=== PATIENT | male | born 1930 | race Caucasian/White ===

== ENCOUNTER 2016-08-11 07:53 | Day surgery (SDC) | payer MEDICARE, OTHER ==
[~2016-08-11 07:53] MED LIST: KETOROLAC TROMETHAMINE 0.45% 4 DROP/0.4 ML DROPERETTE OD PRN
[2016-08-11] MEDS ORDERED: LIDOCAINE 1% INJ-PF (10 MG/ML) 30 ML SDV ONE (08:09)
[2016-08-11] MEDS ORDERED: CHONDR SU A NA/HYALUR INTRAOC KIT (SURGICARE) ONE (08:09)
[2016-08-11] MEDS ORDERED: EPINEPHRINE INJ/PF 1 MG/1 ML AMPULE ONE (08:09)
[2016-08-11] MEDS: TETRACAINE HCL 0.5% OPH SOLN 0.6 ML DROPERETTE OD PRN ×3 (08:38→09:06)
[2016-08-11] MEDS: TROPICAMIDE 1% OPH SOLN 3 ML OD PRN ×3 (08:39→08:56)
[2016-08-11] MEDS: CYCLOPENTOLATE 0.2%/PHENYLEPHRINE 1% OPH SOLN 2 ML OD PRN ×3 (08:39→08:57)
[2016-08-11] MEDS: BESIFLOXACIN HCL 0.6% OPH SUSP 5 ML BOTTLE OD PRN ×4 (08:40→09:29)
[2016-08-11] MEDS ORDERED: MIDAZOLAM 2 MG/2 ML INJ ONE (08:45)
[2016-08-11] MEDS ORDERED: PHENYLEPHRINE/KETOROLAC 1%-0.3% 4 ML VIAL ONE (08:50)
[2016-08-11] MEDS: TOBRAMYCIN SULFATE/DEXAMETH OPH OINTMENT 3.5 GM ONE ×2 (09:29)
== END 2016-08-11 10:02 | disposition home or self-care (01) ==
LOC: SC 07:53
PROVIDERS: ATTEND Ophthalmology
PROC: 08RJ3JZ Replacement of Right Lens with Synthetic Substitute, Percutaneous Approach (ICD-10-PCS; principal; 2016-08-11 09:15)
DX: H25.11 Age-related nuclear cataract, right eye (principal); K21.9 Gastro-esophageal reflux disease without esophagitis; I10 Essential (primary) hypertension; E78.00 Pure hypercholesterolemia, unspecified; E05.90 Thyrotoxicosis, unspecified without thyrotoxic crisis or storm; H91.90 Unspecified hearing loss, unspecified ear; I49.9 Cardiac arrhythmia, unspecified; Z79.82 Long term (current) use of aspirin; Z79.899 Other long term (current) drug therapy; Z79.01 Long term (current) use of anticoagulants; Z87.891 Personal history of nicotine dependence
CPT/HCPCS: 66984; J2250; J3490 ×3; A9270; C9447; 142; J0171

== ENCOUNTER 2016-08-25 07:55 | Day surgery (SDC) | payer MEDICARE, OTHER ==
[~2016-08-25 07:55] MED LIST changes: -KETOROLAC TROMETHAMINE 0.45% 4 DROP/0.4 ML DROPERETTE OD PRN; +KETOROLAC TROMETHAMINE 0.45% 4 DROP/0.4 ML DROPERETTE OS PRN
[2016-08-25] MEDS ORDERED: CHONDR SU A NA/HYALUR INTRAOC KIT (SURGICARE) ONE (08:01)
[2016-08-25] MEDS ORDERED: LIDOCAINE 1% INJ-PF (10 MG/ML) 30 ML SDV ONE (08:01)
[2016-08-25] MEDS ORDERED: PHENYLEPHRINE/KETOROLAC 1%-0.3% 4 ML VIAL ONE (08:01)
[2016-08-25] MEDS ORDERED: TOBRAMYCIN SULFATE/DEXAMETH OPH OINTMENT 3.5 GM ONE (08:01)
[2016-08-25] MEDS: BESIFLOXACIN HCL 0.6% OPH SUSP 5 ML BOTTLE OS PRN ×3 (08:26→09:35)
[2016-08-25] MEDS: TROPICAMIDE 1% OPH SOLN 3 ML OS PRN ×3 (08:26→08:48)
[2016-08-25] MEDS: TETRACAINE HCL 0.5% OPH SOLN 0.6 ML DROPERETTE OS PRN ×3 (08:26→09:15)
[2016-08-25] MEDS: CYCLOPENTOLATE 0.2%/PHENYLEPHRINE 1% OPH SOLN 2 ML OS PRN ×3 (08:26→08:48)
[2016-08-25] MEDS ORDERED: FENTANYL CITRATE INJ/PF 100 MCG/2 ML AMPUL ONE (09:08)
[2016-08-25] MEDS ORDERED: MIDAZOLAM 2 MG/2 ML INJ ONE (09:08)
== END 2016-08-25 10:12 | disposition home or self-care (01) ==
LOC: SC 07:55
PROVIDERS: ATTEND Ophthalmology
PROC: 08RK3JZ Replacement of Left Lens with Synthetic Substitute, Percutaneous Approach (ICD-10-PCS; principal; 2016-08-25 09:30)
DX: H25.12 Age-related nuclear cataract, left eye (principal); I10 Essential (primary) hypertension; E78.00 Pure hypercholesterolemia, unspecified; K21.9 Gastro-esophageal reflux disease without esophagitis; Z96.1 Presence of intraocular lens; E05.90 Thyrotoxicosis, unspecified without thyrotoxic crisis or storm; H91.90 Unspecified hearing loss, unspecified ear; Z79.82 Long term (current) use of aspirin; Z79.899 Other long term (current) drug therapy
CPT/HCPCS: 66984; V2630; J2250; J3490 ×3; A9270; J3010; C9447; 142

== ENCOUNTER → 2016-12-17 | Outpatient (CLI) | payer MEDICARE, OTHER ==
--- NOTE | 2016-12-17 14:38 | RADIOLOGY REPORT (SQ) ---
EXAM DESCRIPTION: CTA ABDOMEN/PELVIS W WO COMPLETED DATE/TIME: 12/17/2016 11:43 am REASON FOR STUDY: AORTIC ANEURYSM OF UNSPECIFIED SITE, W/O RUPTURE I71.9 AORTIC ANEURYSM OF UNSPECI FIED SITE, WITHOUT RUPTURE COMPARISON: None. TECHNIQUE: CT scan of the abdominal aorta extending to the iliac bifurcation performed with intraven ous contrast using helical scanning technique with dynamic intravenous contrast injection. Images rev iewed with lung, soft tissue, and bone windows. Reconstructed coronal and sagittal MPR images reviewe d. All images stored on PACS. Advanced 3D imaging as volume rendering, MIPS, SSD performed? Yes All CT scanners at this facility use dose modulation, iterative reconstruction, and/or weight based d osing when appropriate to reduce radiation dose to as low as reasonably achievable (ALARA). [facility]: Dose Right [facility]: CareDose [facility]: Dose Right [facility]: Teradose 4D [facility]: [employer] CONTRAST TYPE AND DOSE: 60mL Isovue 370 RENAL FUNCTION: Creatinine 1.4 LIMITATIONS: None. FINDINGS: POST-CONTRAST IMAGING: AORTA AND VESSELS: There is diffuse ectasia of the abdominal aorta with vascular calcifications and a large component of intraluminal clot. An infrarenal abdominal aortic aneurysm is identified measuri ng 3.3 x 3.5 cm in diameters. There are crescentic calcifications within the lumen of the abdominal aortia which has the appearance of a thrombosed aortic dissection. No evidence for a leaking aneurys m is seen. LUNG BASES: No significant findings. No nodules or infiltrates. LIVER: Normal size. No masses or dilated ducts. SPLEEN: Normal size. No focal lesions. PANCREAS: No masses. No significant calcifications. No adjacent inflammation or peripancreatic fluid collections. Pancreatic duct not dilated. GALLBLADDER: Status post cholecystectomy. ADRENAL GLANDS: No significant masses or asymmetry. RIGHT KIDNEY AND URETER: No mass, calculi or urinary tract obstruction. LEFT KIDNEY AND URETER: No mass, calculi or urinary tract obstruction. RETROPERITONEUM: No retroperitoneal adenopathy, hemorrhage or masses. BOWEL AND PERITONEAL CAVITY: No masses or inflammatory changes. No free fluid or peritoneal masses. APPENDIX: Normal. ABDOMINAL WALL: No masses. No hernias. BONY STRUCTURES: No significant or acute findings. 3-D IMAGING: Confirms the above findings. OTHER: No other significant finding. IMPRESSION: There is diffuse ectasia of the abdominal aorta with vascular calcifications and a large component of intraluminal clot. Infrarenal abdominal aortic aneurysm is identified measuring 3.3 x 3.5 cm in diameters. There are crescentic calcifications within the lumen of the abdominal aorta whi ch has the appearance of a thrombosed aortic dissection. No evidence for a leaking aneurysm is seen. Other findings as noted above TECHNICAL DOCUMENTATION: JOB ID: [id number] Quality ID # [id number]: Final reports with documentation of one or more dose reduction techniques (e.g., Au tomated exposure control, adjustment of the mA and/or kV according to patient size, use of iterative reconstruction technique) 2010 [employer]- All Rights Reserved
== END ==
LOC: RAD 10:20
PROVIDERS: ATTEND Internal Medicine
DX: I71.9 Aortic aneurysm of unspecified site, without rupture (principal)
CPT/HCPCS: 74174; 82565

== ENCOUNTER → 2017-03-21 | Outpatient (CLI) | payer MEDICARE, OTHER ==
--- NOTE | 2017-03-21 10:51 | RADIOLOGY REPORT (SQ) ---
EXAM DESCRIPTION: CT ABDOMEN NO ORAL OR IV COMPLETED DATE/TIME: 03/21/2017 7:20 am REASON FOR STUDY: AAA OF UNSPEC SITE, W/O RUPTURE (I71.9) I71.9 AORTIC ANEURYSM OF UNSPECIFIED SITE , WITHOUT RUPTURE COMPARISON: None. TECHNIQUE: CT scan of the abdomen performed without intravenous contrast and with oral contrast. Im ages reviewed with lung, soft tissue, and bone windows. Reconstructed coronal and sagittal MPR image s reviewed. All images stored on PACS. All CT scanners at this facility use dose modulation, iterative reconstruction, and/or weight based d osing when appropriate to reduce radiation dose to as low as reasonably achievable (ALARA). [facility]: Dose Right [facility]: CareDose [facility]: Dose Right [facility]: Teradose 4D [facility]: Smart [employer] RADIATION DOSE: Up-to-date CT equipment and radiation dose reduction techniques were employed. CTDIv ol: 11.4 mGy. DLP: 444 mGy-cm.mGy. LIMITATIONS: None. FINDINGS: LOWER CHEST: There is a very small hiatal hernia. No acute pulmonary abnormality is seen. NONCONTRASTED LIVER, SPLEEN, ADRENALS: Evaluation limited by lack of IV contrast. No identified sign ificant masses. PANCREAS: No masses. No peripancreatic inflammatory changes. GALLBLADDER: Surgically absent. RIGHT KIDNEY AND URETER: No suspicious masses. Assessment limited by lack of IV contrast. Mild perin ephric stranding. Mild cortical thinning. No significant calcifications. No hydronephrosis or hyd roureter. LEFT KIDNEY AND URETER: No solid masses. There are couple of small cortical cysts. There is mild pe rinephric stranding. There is mild cortical thinning. No significant calcifications. No hydronep hrosis or hydroureter. AORTA AND RETROPERITONEUM: Aortic atherosclerosis is present. There is a 33 mm saccular aneurysm of the infrarenal abdominal aorta and a 2nd 35 mm saccular aneurysm of the distal abdominal aorta. Thes e aneurysms are posterior in location and extend beyond the originally calcified lumen. See image 48 series 2 and image 54 series 2. There is atherosclerosis involving the origins of the renal arterie s and of the celiac and superior mesenteric arteries. BOWEL AND PERITONEAL CAVITY: No obvious masses or inflammatory changes. No free fluid. APPENDIX: Normal. ABDOMINAL WALL: No abdominal wall hernias. BONES: No significant findings. OTHER: No other significant finding. IMPRESSION: 1. Small hiatal hernia. 2. There are mild chronic changes in the kidneys. 3. There are 2 small aneurysms of the infrarenal abdominal aorta as described. Atherosclerosis is p resent in the abdominal vessels. TECHNICAL DOCUMENTATION: JOB ID: [id number] Quality ID # [id number]: Final reports with documentation of one or more dose reduction techniques (e.g., Au tomated exposure control, adjustment of the mA and/or kV according to patient size, use of iterative reconstruction technique) 2010 [employer]- All Rights Reserved
== END ==
LOC: RAD 06:25
PROVIDERS: ATTEND Internal Medicine
DX: I71.9 Aortic aneurysm of unspecified site, without rupture (principal)
CPT/HCPCS: 74150

== ENCOUNTER → 2017-10-19 | Outpatient (CLI) | payer MEDICARE, OTHER ==
--- NOTE | 2017-10-19 09:49 | RADIOLOGY REPORT (SQ) ---
EXAM DESCRIPTION: CT ABD/PELVIS NO ORAL OR IV COMPLETED DATE/TIME: 10/19/2017 8:01 am REASON FOR STUDY: AAA (I71.9) I71.9 AORTIC ANEURYSM OF UNSPECIFIED SITE, WITHOUT RUPTURE COMPARISON: 12/17/2016 TECHNIQUE: CT scan of the abdomen and pelvis performed without intravenous or oral contrast. Images reviewed with lung, soft tissue, and bone windows. Reconstructed coronal and sagittal MPR images revi ewed. All images stored on PACS. All CT scanners at this facility use dose modulation, iterative reconstruction, and/or weight based d osing when appropriate to reduce radiation dose to as low as reasonably achievable (ALARA). [facility]: Dose Right [facility]: CareDose [facility]: Dose Right [facility]: Teradose 4D [facility]: Smart [employer] RADIATION DOSE: CT Rad equipment meets quality standard of care and radiation dose reduction techniq ues were employed. CTDIvol: 12.0 mGy. DLP: 672 mGy-cm.mGy. LIMITATIONS: No IV contrast. FINDINGS: LOWER CHEST: No significant findings. No nodules or infiltrates. NON-CONTRASTED LIVER, SPLEEN, ADRENALS: Evaluation limited by lack of IV contrast. No identified sign ificant masses. PANCREAS: No masses. No peripancreatic inflammatory changes. GALLBLADDER: Surgically absent. RIGHT KIDNEY AND URETER: No suspicious masses. Assessment limited by lack of IV contrast. No signif icant calcifications. No hydronephrosis or hydroureter. LEFT KIDNEY AND URETER: No suspicious masses. Assessment limited by lack of IV contrast. No signifi cant calcifications. No hydronephrosis or hydroureter. AORTA AND RETROPERITONEUM: Distal aortic aneurysm measuring 3.4 cm maximum diameter, not significantl y changed. BOWEL AND PERITONEAL CAVITY: No obvious masses or inflammatory changes. No free fluid. APPENDIX: Normal. PELVIS, BLADDER, AND ABDOMINAL WALL:No abnormal masses. No free fluid. Bladder normal. BONES: No acute findings. OTHER: No other significant finding. IMPRESSION: Stable 3.4 cm distal aortic aneurysm. COMMENT: Quality ID # 436: Final reports with documentation of one or more dose reduction techniques (e.g., Automated exposure control, adjustment of the mA and/or kV according to patient size, use of iterative reconstruction technique) TECHNICAL DOCUMENTATION: JOB ID: [id number] [employer]- All Rights Reserved Reading location - IP/workstation name: [employer] [email or web address]
== END ==
LOC: RAD 07:32
PROVIDERS: ATTEND Internal Medicine
DX: I71.9 Aortic aneurysm of unspecified site, without rupture (principal)
CPT/HCPCS: 74176

== ENCOUNTER 2018-10-26 13:15 | Observation (INO) | payer OTHER, MEDICARE ==
--- NOTE | 2018-10-26 15:33 | RADIOLOGY REPORT (SQ) ---
EXAM DESCRIPTION: CHEST SINGLE VIEW COMPLETED DATE/TIME: 10/26/2018 3:09 pm REASON FOR STUDY: abnormal EKG COMPARISON: 11/09/2007. NUMBER OF VIEWS: One view. TECHNIQUE: Single frontal radiographic view of the chest acquired. LIMITATIONS: None. FINDINGS: LUNGS AND PLEURA: Mild chronic interstitial changes. No focal infiltrates, masses or pneu mothorax. No pleural effusion. MEDIASTINUM AND HILAR STRUCTURES: No masses. Contour normal. HEART AND VASCULAR STRUCTURES: Heart enlarged without failure. Normal vasculature. BONES: No acute findings. HARDWARE: Sternotomy wires and coronary artery markers. Metallic fragments in the soft tissues of th e left upper extremity. OTHER: No other significant finding. IMPRESSION: MILD CARDIOMEGALY. MILD CHRONIC INTERSTITIAL CHANGES. NO ACUTE RADIOGRAPHIC FINDING IN THE CHEST. TECHNICAL DOCUMENTATION: JOB ID: [id number] [employer]- All Rights Reserved Reading location - IP/workstation name: [email or web address]
[2018-10-26 15:36] LABS: ABSOLUTE EOSINOPHILS # (AUTO) 0.1 10^3/uL (0.0-0.6); ABSOLUTE LYMPHOCYTES (AUTO) 1.6 10^3/uL (0.5-4.7); ABSOLUTE MONOCYTES (AUTO) 0.6 10^3/uL (0.1-1.4); ABSOLUTE NEUT (AUTO) 5.2 10^3/uL (1.7-8.2); BASOPHILS % (AUTO) 0.6 % (0-2); EOSINOPHILS % (AUTO) 1.4 % (0-6); HEMATOCRIT 32.9 % (37.9-51.0); HEMOGLOBIN 10.7 g/dL (13.5-17.0); LYMPHOCYTES % (AUTO) 20.9 % (13-45); MEAN CORPUSCULAR HEMOGLOBIN 26.2 pg (27.0-33.4); MEAN CORPUSCULAR HGB CONC 32.4 g/dL (32.0-36.0); MEAN CORPUSCULAR VOLUME 81 fl (80-97); MONOCYTES % (AUTO) 7.9 % (3-13); PLATELET COUNT 229 10^3/uL (150-450); RED BLOOD COUNT 4.07 10^6/uL (4.35-5.55); RED CELL DISTRIBUTION WIDTH 15.7 % (11.5-14.0); SEGMENTED NEUTROPHILS % (AUTO) 69.2 % (42-78); TOTAL CELLS COUNTED % (AUTO) 100 %; WHITE BLOOD COUNT 7.5 10^3/uL (4.0-10.5)
[2018-10-26 15:57] LABS: ALANINE AMINOTRANSFERASE 36 U/L (21-72); ALBUMIN 3.6 g/dL (3.5-5.0); ALKALINE PHOSPHATASE 86 U/L (38-126); ANION GAP 10 (5-19); ASPARTATE AMINO TRANSFERASE 36 U/L (17-59); BILIRUBIN,DIRECT 0.3 mg/dL (0.0-0.4); BILIRUBIN,TOTAL 0.7 mg/dL (0.2-1.3); BLOOD UREA NITROGEN 26 mg/dL (7-20); CALCIUM 9.3 mg/dL (8.4-10.2); CARBON DIOXIDE 24 mmol/L (22-30); CHLORIDE 106 mmol/L (98-107); CREATINE KINASE 361 U/L (55-170); GLUCOSE 87 mg/dL (75-110); SODIUM 139.9 mmol/L (137-145); TOTAL PROTEIN 6.3 g/dL (6.3-8.2)
[2018-10-26] MEDS ORDERED: ASPIRIN 81 MG TABLET, CHEWABLE PO ONE (17:15)
[2018-10-26] MEDS ORDERED: (PENDING PHARMACY ID) (Lisinopril [Zestril] 20 MG) PO SCH (18:15)
[2018-10-26 18:39] LABS: CREATINE KINASE MB 0.24 ng/mL (<4.55); TROPONIN I 0.033 ng/mL
--- NOTE | 2018-10-26 19:46 | EKG REPORT ---
SEVERITY:- ABNORMAL ECG - SINUS RHYTHM FIRST DEGREE AV BLOCK INFERIOR INFARCT, AGE INDETERMINATE CONSIDER POSTERIOR WALL INVOLVEMENT PROLONGED QT INTERVAL : Confirmed by: Colten Kelly MD 26-Oct-2018 19:45:18
[2018-10-26] MEDS: TAMSULOSIN HCL 0.4 MG CAP.SR.24H PO SCH (20:18)
[2018-10-26] MEDS: FINASTERIDE 5 MG TABLET PO SCH (20:18)
[2018-10-26] MEDS: CLOPIDOGREL BISULFATE 75 MG TABLET PO SCH (20:18)
[2018-10-26] MEDS: SIMVASTATIN 40 MG TABLET PO SCH (20:18)
[2018-10-26] MEDS: ATENOLOL 50 MG TABLET PO SCH (20:19)
[2018-10-26] MEDS: HYDROCHLOROTHIAZIDE 12.5 MG TABLET PO SCH (21:31)
[2018-10-26] MEDS: LISINOPRIL 10 MG TABLET PO SCH (21:35)
--- NOTE | 2018-10-26 22:11 | PDOC H&P ---
History of Present Illness Admission Date/PCP: 10/26/18 13:15 AVIVA ELI MD History of Present Illness: FATMATA LOZADA is a 88 year old male, She has a history of ischemic heart disease, chronic kidney disease stage III, Abdominal aortic aneurysm, AAA.He came to the office today for evaluation of progressive shortness of breath, he denies any chest pain, in the office a 12-lead EKG was done, it demonstrated Q waves in inferior leads, history of NM status post CABG many years ago. Past Medical History Cardiac Medical History: Reports: Coronary Artery Disease, Hyperlipidema, Hypertension - MEDICATED, Other - Abdominal aortic aneurysm Renal/ Medical History: Reports: Chronic Kidney Disease, Other - Chronic kidney disease stage III Musculoskeltal Medical History: Reports: Arthritis Past Surgical History Past Surgical History: Reports: Cholecystectomy Denies: Pacemaker Social History Smoking Status: Former Smoker Frequency of Alcohol Use: Occasional Hx Recreational Drug Use: No Drugs: None Hx Prescription Drug Abuse: No Family History Parental Family History Reviewed: Yes Children Family History Reviewed: Yes Sibling(s) Family History Reviewed.: Yes Medication/Allergy Home Medications: RX: Aspirin [Ecotrin 81 mg EC Tablet] 81 mg PO DAILY 10/26/18 RX: Atenolol [Tenormin 100 mg Tablet] 100 mg PO DAILY 10/26/18 RX: Clopidogrel Bisulfate [Plavix 75 mg Tablet] 75 mg PO DAILY 10/26/18 RX: Finasteride [Proscar 5 mg Tablet] 5 mg PO DAILY 10/26/18 RX: Hydrochlorothiazide [Hydrodiuril 12.5 mg Tablet] 12.5 mg PO Q12 10/26/18 RX: Levothyroxine Sodium [Synthroid 0.088 mg Tablet] 0.088 mg PO Q6AM 10/26/18 RX: Lisinopril [Zestril] 20 mg PO Q12 10/26/18 RX: Simvastatin [Zocor 40 mg Tablet] 40 mg PO QPM 10/26/18 RX: Tamsulosin HCl [Flomax 0.4 mg Cap.sr] 0.4 mg PO DAILY 10/26/18 Allergies/Adverse Reactions: No Known Allergies Allergy (Unverified 08/21/12 21:01) Review of Systems Constitutional: ABSENT: chills, fever(s), headache(s), weight gain, weight loss Eyes: ABSENT: visual disturbances Ears: ABSENT: hearing changes Cardiovascular: PRESENT: chest pain. ABSENT: dyspnea on exertion, edema, or thropnea, palpitations Respiratory: ABSENT: cough, hemoptysis Gastrointestinal: ABSENT: abdominal pain, constipation, diarrhea, hematemesis, hematochezia, nausea, vomiting Genitourinary: ABSENT: dysuria, hematuria Musculoskeletal: ABSENT: joint swelling Integumentary: ABSENT: rash, wounds Neurological: ABSENT: abnormal gait, abnormal speech, confusion, dizziness, focal weakness, syncope Psychiatric: ABSENT: anxiety, depression, homidical ideation, suicidal ideation Endocrine: ABSENT: cold intolerance, heat intolerance, menstrual abnormalities, polydipsia, polyuria Hematologic/Lymphatic: ABSENT: easy bleeding, easy bruising, lymphadenopathy Physical Exam Vital Signs: Temp Pulse Resp BP Pulse Ox 98.0 F 70 23 H 158/80 H 95 10/26/18 20:14 10/26/18 20:14 10/26/18 20:14 10/26/18 20:14 10/26/18 20:14 Intake & Output 10/25/18 10/26/18 10/27/18 06:59 06:59 06:59 Intake Total 237 Balance 237 Weight 101.2 kg General appearance: PRESENT: no acute distress, well-developed, well-nourished Head exam: PRESENT: atraumatic, normocephalic Eye exam: PRESENT: conjunctiva pink, EOMI, PERRLA Ear exam: PRESENT: normal external ear exam Mouth exam: PRESENT: moist, tongue midline Neck exam: PRESENT: full ROM Respiratory exam: PRESENT: clear to auscultation tracee Cardiovascular exam: PRESENT: RRR, +S1 Vascular exam: PRESENT: normal capillary refill GI/Abdominal exam: PRESENT: normal bowel sounds, soft Rectal exam: PRESENT: deferred Neurological exam: PRESENT: alert, CN II-XII grossly intact Psychiatric exam: PRESENT: appropriate affect, normal mood Skin exam: PRESENT: dry, intact, warm Results Laboratory Results: 10/26/18 15:05 10/26/18 15:05 10/26/18 10/26/18 15:05 15:05 WBC 7.5 RBC 4.07 L Hgb 10.7 L Hct 32.9 L MCV 81 MCH 26.2 L MCHC 32.4 RDW 15.7 H Plt Count 229 Seg Neutrophils % 69.2 Lymphocytes % 20.9 Monocytes % 7.9 Eosinophils % 1.4 Basophils % 0.6 Absolute Neutrophils 5.2 Absolute Lymphocytes 1.6 Absolute Monocytes 0.6 Absolute Eosinophils 0.1 Absolute Basophils 0.0 Sodium 139.9 Potassium 4.0 Chloride 106 Carbon Dioxide 24 Anion Gap 10 BUN 26 H Creatinine 2.02 H Est GFR ( Amer) 38 L Est GFR (Non-Af Amer) 31 L Glucose 87 Calcium 9.3 Total Bilirubin 0.7 AST 36 ALT 36 Alkaline Phosphatase 86 Total Protein 6.3 Albumin 3.6 10/26/18 10/26/18 10/26/18 15:05 17:42 17:42 Creatine Kinase 361 H CK-MB (CK-2) 0.24 Troponin I 0.033 NT-Pro-B Natriuret Pep 4740 H Impressions: Chest X-Ray 10/26/18 00:00 IMPRESSION: MILD CARDIOMEGALY. MILD CHRONIC INTERSTITIAL CHANGES. NO ACUTE RADIOGRAPHIC FINDING IN THE CHEST. Assessment & Plan - Diagnosis (1) Anginal equivalent Is this a current diagnosis for this admission?: Yes Plan: He has shortness of breath highly suggestive of angina equivalent patient is admitted for management (2) Chronic kidney disease, stage 3 Is this a current diagnosis for this admission?: Yes (3) AAA (abdominal aortic aneurysm) Qualifiers: Presence of rupture: without rupture Qualified Code(s): I71.4 - Abdominal aortic aneurysm, without rupture Is this a current diagnosis for this admission?: Yes (4) CAD (coronary artery disease) Qualifiers: Coronary Disease-Associated Artery/Lesion type: [place] artery [place] vs. transplanted heart: [place] heart Associated angina: without angina Qualified Code(s): I25.10 - Atherosclerotic heart disease of [place] coronary artery without angina pectoris Is this a current diagnosis for this admission?: Yes
[2018-10-27] MEDS ORDERED: ACETAMINOPHEN 325 MG TABLET PO ONE (00:30)
[2018-10-27 03:29] LABS: CREATINE KINASE MB 0.24 ng/mL (<4.55); TROPONIN I 0.039 ng/mL
[2018-10-27 04:30] LABS: APPEARANCE,URINE CLEAR; BILIRUBIN,URINE NEGATIVE (NEGATIVE); COLOR,URINE YELLOW; GLUCOSE, URINE NEGATIVE (NEGATIVE); KETONES,URINE NEGATIVE (NEGATIVE); LEUKOCYTE ESTERASE,URINE NEGATIVE (NEGATIVE); NITRITE,URINE NEGATIVE (NEGATIVE); PROTEIN,URINE 30 mg/dL (NEGATIVE); URINE SPECIFIC GRAVITY 1.016
[2018-10-27] MEDS ORDERED: (PENDING PHARMACY ID) (Atenolol [Tenormin 100 Mg Tablet] 100 MG) PO SCH (10:00)
[2018-10-27] MEDS: ASPIRIN 81 MG TABLET, ENT COATED PO SCH (10:50)
[2018-10-27] MEDS: ATENOLOL 50 MG TABLET PO SCH (10:50)
[2018-10-27] MEDS: LISINOPRIL 10 MG TABLET PO SCH ×2 (10:50→21:07)
[2018-10-27] MEDS: TAMSULOSIN HCL 0.4 MG CAP.SR.24H PO SCH (10:50)
[2018-10-27] MEDS: FINASTERIDE 5 MG TABLET PO SCH (10:50)
[2018-10-27] MEDS: CLOPIDOGREL BISULFATE 75 MG TABLET PO SCH (10:51)
[2018-10-27] MEDS: HYDROCHLOROTHIAZIDE 12.5 MG TABLET PO SCH ×2 (10:51→21:07)
[2018-10-27 11:18] LABS: CREATINE KINASE MB 0.42 ng/mL (<4.55); TROPONIN I 0.035 ng/mL
[2018-10-27] MEDS ORDERED: ISOSORBIDE MONONITRATE 60 MG TAB.ER.24H PO SCH (14:00)
[2018-10-27] MEDS: ISOSORBIDE MONONITRATE 30 MG TAB.ER.24H PO SCH (14:07)
[2018-10-27] MEDS: SIMVASTATIN 40 MG TABLET PO SCH (17:19)
[2018-10-27] MEDS: ACETAMINOPHEN 325 MG TABLET PO PRN (17:22)
[2018-10-27] MEDS: LEVOTHYROXINE SODIUM 0.088 MG TABLET PO SCH (20:16)
--- NOTE | 2018-10-27 22:12 | PDOC PROGRESS REPORT ---
Subjective Progress Note for:: 10/27/18 Subjective:: Patient seen by the bedside,he complains of acid reflux symptom Reason For Visit: ANGINA EQUIVALENT DISEASE, H/O CAD, CABG, AAA, Physical Exam Vital Signs: Temp Pulse Resp BP Pulse Ox 97.3 F 66 18 138/69 H 92 10/27/18 20:08 10/27/18 20:08 10/27/18 20:08 10/27/18 20:08 10/27/18 20:08 Intake & Output 10/26/18 10/27/18 10/28/18 06:59 06:59 06:59 Intake Total 237 1108 Output Total 300 Balance -63 1108 Weight 102.8 kg General appearance: PRESENT: no acute distress Eye exam: PRESENT: PERRLA Respiratory exam: PRESENT: clear to auscultation tracee Cardiovascular exam: PRESENT: +S1, +S2 GI/Abdominal exam: PRESENT: soft Neurological exam: PRESENT: alert Results Laboratory Results: 10/26/18 15:05 10/26/18 15:05 10/27/18 04:10 Urine Color YELLOW Urine Appearance CLEAR Urine pH 8.0 Ur Specific [place] 1.016 Urine Protein 30 H Urine Glucose (UA) NEGATIVE Urine Ketones NEGATIVE Urine Blood NEGATIVE Urine Nitrite NEGATIVE Ur Leukocyte Esterase NEGATIVE Urine RBC (Auto) 0 10/26/18 10/26/18 10/26/18 15:05 17:42 17:42 Creatine Kinase 361 H CK-MB (CK-2) 0.24 Troponin I 0.033 NT-Pro-B Natriuret Pep 4740 H 10/27/18 10/27/18 10/27/18 02:40 02:40 10:38 Creatine Kinase 377 H 446 H CK-MB (CK-2) 0.24 Troponin I 0.039 NT-Pro-B Natriuret Pep 10/27/18 10:38 Creatine Kinase CK-MB (CK-2) 0.42 Troponin I 0.035 NT-Pro-B Natriuret Pep Impressions: Chest X-Ray 10/26/18 00:00 IMPRESSION: MILD CARDIOMEGALY. MILD CHRONIC INTERSTITIAL CHANGES. NO ACUTE RADIOGRAPHIC FINDING IN THE CHEST. Assessment & Plan - Diagnosis (1) Anginal equivalent Is this a current diagnosis for this admission?: Yes (2) Chronic kidney disease, stage 3 Is this a current diagnosis for this admission?: Yes (3) AAA (abdominal aortic aneurysm) Qualifiers: Presence of rupture: without rupture Qualified Code(s): I71.4 - Abdominal aortic aneurysm, without rupture Is this a current diagnosis for this admission?: Yes (4) CAD (coronary artery disease) Qualifiers: Coronary Disease-Associated Artery/Lesion type: [place] artery [place] vs. transplanted heart: [place] heart Associated angina: without angina Qualified Code(s): I25.10 - Atherosclerotic heart disease of [place] coronary artery without angina pectoris Is this a current diagnosis for this admission?: Yes
[2018-10-27 22:22] LABS: ABSOLUTE EOSINOPHILS # (AUTO) 0.2 10^3/uL (0.0-0.6); ABSOLUTE LYMPHOCYTES (AUTO) 1.7 10^3/uL (0.5-4.7); ABSOLUTE MONOCYTES (AUTO) 0.7 10^3/uL (0.1-1.4); BASOPHILS % (AUTO) 0.5 % (0-2); EOSINOPHILS % (AUTO) 2.6 % (0-6); HEMATOCRIT 29.6 % (37.9-51.0); HEMOGLOBIN 9.9 g/dL (13.5-17.0); LYMPHOCYTES % (AUTO) 21.9 % (13-45); MEAN CORPUSCULAR HEMOGLOBIN 26.7 pg (27.0-33.4); MEAN CORPUSCULAR HGB CONC 33.4 g/dL (32.0-36.0); MEAN CORPUSCULAR VOLUME 80 fl (80-97); MONOCYTES % (AUTO) 9.5 % (3-13); PLATELET COUNT 198 10^3/uL (150-450); RED BLOOD COUNT 3.69 10^6/uL (4.35-5.55); SEGMENTED NEUTROPHILS % (AUTO) 65.5 % (42-78); TOTAL CELLS COUNTED % (AUTO) 100 %; WHITE BLOOD COUNT 7.6 10^3/uL (4.0-10.5)
[2018-10-27 22:39] LABS: ALANINE AMINOTRANSFERASE 40 U/L (21-72); ALBUMIN 3.2 g/dL (3.5-5.0); ALKALINE PHOSPHATASE 84 U/L (38-126); ANION GAP 10 (5-19); ASPARTATE AMINO TRANSFERASE 31 U/L (17-59); BILIRUBIN,DIRECT 0.3 mg/dL (0.0-0.4); BILIRUBIN,TOTAL 0.8 mg/dL (0.2-1.3); BLOOD UREA NITROGEN 29 mg/dL (7-20); CALCIUM 8.8 mg/dL (8.4-10.2); CARBON DIOXIDE 20 mmol/L (22-30); CHLORIDE 103 mmol/L (98-107); GLUCOSE 98 mg/dL (75-110); POTASSIUM 3.8 mmol/L (3.6-5.0)
--- NOTE | 2018-10-27 22:44 | PDOC CONSULTATION ---
Consultation-Blank Consultation: CARDIOLOGY CONSULTATION by Dr. Trang Treviño on 10/27/2018. Patient seen at 3 PM on 10/27/2018. 60 minutes spent on this patient more than 50% of time spent in direct patient care. REASON FOR CONSULTATION: Dyspnea and chest pressure/pain with minimal exertion in a patient with history of coronary artery disease and remote history of coronary bypass graft surgery in 1996.
[2018-10-28] MEDS: LEVOTHYROXINE SODIUM 0.088 MG TABLET PO SCH (06:03)
[2018-10-28] MEDS: LISINOPRIL 10 MG TABLET PO SCH ×2 (10:03→21:22)
[2018-10-28] MEDS: ISOSORBIDE MONONITRATE 30 MG TAB.ER.24H PO SCH (10:04)
[2018-10-28] MEDS: TAMSULOSIN HCL 0.4 MG CAP.SR.24H PO SCH (10:04)
[2018-10-28] MEDS: ASPIRIN 81 MG TABLET, ENT COATED PO SCH (10:04)
[2018-10-28] MEDS: FINASTERIDE 5 MG TABLET PO SCH (10:04)
[2018-10-28] MEDS: CLOPIDOGREL BISULFATE 75 MG TABLET PO SCH (10:04)
[2018-10-28] MEDS: ATENOLOL 50 MG TABLET PO SCH (10:04)
[2018-10-28] MEDS: HYDROCHLOROTHIAZIDE 12.5 MG TABLET PO SCH ×2 (10:04→21:22)
[2018-10-28] MEDS ORDERED: NITROGLYCERIN 0.4 MG/TAB 25 TAB/BOTTLE ONE (12:25)
[2018-10-28] MEDS ORDERED: MAG HYDROX/AL HYDROX/SIMETH SUSP 30 ML UDCUP ONE (12:27)
[2018-10-28] MEDS: PANTOPRAZOLE SODIUM 40 MG TABLET.DR PO SCH (15:39)
--- NOTE | 2018-10-28 15:56 | EKG REPORT ---
SEVERITY:- ABNORMAL ECG - SINUS OR ECTOPIC ATRIAL RHYTHM SINUS PAUSE/ FIRST DEGREE AV BLOCK PROBABLE INFERIOR INFARCT, AGE INDETERMINATE CONSIDER POSTERIOR WALL INVOLVEMENT LATERAL LEADS ARE ALSO INVOLVED BORDERLINE PROLONGED QT INTERVAL : Confirmed by: Colten Kelly MD 28-Oct-2018 15:56:25
[2018-10-28] MEDS ORDERED: ISOSORBIDE MONONITRATE 60 MG TAB.ER.24H PO ONE (16:50)
[2018-10-28] MEDS ORDERED: RANOLAZINE 500 MG TAB.SR.12H PO ONE (16:50)
[2018-10-28] MEDS ORDERED: PANTOPRAZOLE SODIUM 40 MG TABLET.DR PO SCH (17:00)
--- NOTE | 2018-10-28 19:27 | PDOC PROGRESS REPORT ---
Subjective Progress Note for:: 10/28/18 Subjective:: Patient seen by the bedside,he complains of acid reflux symptom Reason For Visit: ANGINA EQUIVALENT DISEASE, H/O CAD, CABG, AAA, Physical Exam Vital Signs: Temp Pulse Resp BP Pulse Ox 97.7 F 56 L 18 127/73 H 94 10/28/18 16:33 10/28/18 18:39 10/28/18 16:33 10/28/18 16:33 10/28/18 16:33 Intake & Output 10/27/18 10/28/18 10/29/18 06:59 06:59 06:59 Intake Total 237 1108 1500 Output Total 300 375 900 Balance -63 733 600 Weight 102.8 kg 102.3 kg General appearance: PRESENT: no acute distress Eye exam: PRESENT: PERRLA Respiratory exam: PRESENT: clear to auscultation tracee Cardiovascular exam: PRESENT: +S1, +S2 GI/Abdominal exam: PRESENT: soft Results Laboratory Results: 10/27/18 22:00 10/27/18 22:00 10/27/18 10/27/18 22:00 22:00 WBC 7.6 RBC 3.69 L Hgb 9.9 L Hct 29.6 L MCV 80 MCH 26.7 L MCHC 33.4 RDW 16.0 H Plt Count 198 Seg Neutrophils % 65.5 Lymphocytes % 21.9 Monocytes % 9.5 Eosinophils % 2.6 Basophils % 0.5 Absolute Neutrophils 5.0 Absolute Lymphocytes 1.7 Absolute Monocytes 0.7 Absolute Eosinophils 0.2 Absolute Basophils 0.0 Sodium 133.0 L Potassium 3.8 Chloride 103 Carbon Dioxide 20 L Anion Gap 10 BUN 29 H Creatinine 1.62 H Est GFR ( Amer) 49 L Est GFR (Non-Af Amer) 40 L Glucose 98 Calcium 8.8 Total Bilirubin 0.8 AST 31 ALT 40 Alkaline Phosphatase 84 Total Protein 6.0 L Albumin 3.2 L 10/26/18 10/26/18 10/26/18 15:05 17:42 17:42 Creatine Kinase 361 H CK-MB (CK-2) 0.24 Troponin I 0.033 NT-Pro-B Natriuret Pep 4740 H 10/27/18 10/27/18 10/27/18 02:40 02:40 10:38 Creatine Kinase 377 H 446 H CK-MB (CK-2) 0.24 Troponin I 0.039 NT-Pro-B Natriuret Pep 10/27/18 10:38 Creatine Kinase CK-MB (CK-2) 0.42 Troponin I 0.035 NT-Pro-B Natriuret Pep Impressions: Chest X-Ray 10/26/18 00:00 IMPRESSION: MILD CARDIOMEGALY. MILD CHRONIC INTERSTITIAL CHANGES. NO ACUTE RADIOGRAPHIC FINDING IN THE CHEST. Assessment & Plan - Diagnosis (1) Anginal equivalent Is this a current diagnosis for this admission?: Yes (2) Chronic kidney disease, stage 3 Is this a current diagnosis for this admission?: Yes (3) AAA (abdominal aortic aneurysm) Qualifiers: Presence of rupture: without rupture Qualified Code(s): I71.4 - Abdominal aortic aneurysm, without rupture Is this a current diagnosis for this admission?: Yes (4) CAD (coronary artery disease) Qualifiers: Coronary Disease-Associated Artery/Lesion type: [place] artery [place] vs. transplanted heart: [place] heart Associated angina: without angina Qualified Code(s): I25.10 - Atherosclerotic heart disease of [place] coronary artery without angina pectoris Is this a current diagnosis for this admission?: Yes (5) Acid reflux Qualifiers: Esophagitis presence: esophagitis presence not specified Qualified Code(s): K21.9 - Gastro-esophageal reflux disease without esophagitis Is this a current diagnosis for this admission?: Yes Plan: Start Protonix
--- NOTE | 2018-10-28 19:35 | Progress Note ---
Provider Note Provider Note: CARDIOLOGY PROGRESS NOTE by Dr. Trang Treviño on 10/28/2018. OBJECTIVE: The patient states that he is able to walk further in the room without any chest pressure or chest pain or shortness of breath. He has no arrhythmias. The patient does have heartburn which is moved in the reclining position and is less so in the upright position. This was not relieved with sublingual nitroglycerin. The patient was given Maalox which promptly relieved the patient's symptoms. Hence. This is symptoms of GERD. There is no PND orthopnea. There is no shortness of breath at rest. There is no TIA CVA symptoms. There is no ventricular or atrial arrhythmia seen on the monitor. PHYSICAL EXAMINATION: The patient is mildly obese. He is in no acute distress. He is well-groomed. Selected Entries 10/28/18 12:26 Temperature 97.4 F Temperature Oral Source Pulse Rate 71 Respiratory 18 Rate Blood Pressure 150/79 H Blood Pressure 102 Mean BP Location Right Arm BP Position Supine O2 Sat by Pulse 94 Oximetry Oxygen Delivery Room Air Method HEAD: Is atraumatic normocephalic. EYES: Pupils are equal round regular react to light accommodation. Extraocular movements are normal. There is no clinical pallor. There is no scleral icterus. EARS: The patient is slightly hard of hea ring. Tympanic memories are intact. External auditory canals are clear. NOSE: There is no deviated nasal septum. There is no inflammation nasal mucous membranes. MOUTH: Mucous membranes of mouth are moist tongue is moist. There is no ulcers. There is no bleeding from the gums. THROAT: There is no redness of the oropharynx. There is no exudates. SKIN: There is no petechia or ecchymosis. There is no skin lesions or skin rashes. NECK: Is supple. There is no JVD. Carotids are equal there is no bruits. There is no lymphadenopathy. There is no goiter. There is no accessory muscle respiration use. There is no swelling in the neck. Trachea central. LUNGS: Is clear to auscultation percussion without any rhonchi rales or wheezing. On palpation there is no chest wall tenderness. HEART: S1-S2 is heard S1 is of normal intensity. There is no S3 gallop. There is no S3 gallop. There is systolic murmur left sternal border and the apex there is no rub. ABDOMEN: Is soft. Mildly obese. There is no hepatosplenomegaly. Bowel sounds are well heard. There is no tender areas masses. There is no rebound guarding or rigidity. EXTREMITIES: Femorals are well felt. There is no femoral bruits leg pulses are well felt. There is no pedal edema. There is no DVT or cellulitis. There is no cyanosis or clubbing. Capillary refill is normal. There is no calf tenderness. COUNTER DISH CARRIER: The patient is conscious awake alert oriented x3 with no focal deficits. 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 Impression/recommendation: 1. Exertional angina and exertional shortness of breath most likely secondary to angina equivalent. The patient has improvement with the Imdur will increase the patient's Imdur to 60 mg p.o. daily. We will also add Ranexa. We will continue his other current medications. 2. Coronary artery disease. History of coronary bypass graft surgery.? Old inferior [place]. Patient now with exertional anginal symptoms. 3. Hypertension: With the increase of the patient's symptoms all the patient's blood pressure should be much improved. 4. Chronic kidney disease stage III: Avoid nephrotoxic drugs. 5. Hyperlipidemia: We will change the patient's Zocor to atorvastatin in view of starting the patient on Ranexa. 6. GERD: We will start the patient on a proton pump inhibitor. Note that the patient's echocardiogram is a suboptimal/poor study. We will have it repeated in the morning. But it seems that the patient's LV ejection fraction is normal., And there is no significant pulmonary hypertension. But will repeat echo on Tuesday. Medications reviewed. Medications added. Discussed management plan with attending physician Dr. Vallejo. Note 40 minutes spent on this patient with more than 50% of time spent in direct patient care. Medical decision making is of high complexity. The patient is a full code. His 2 sons are his surrogate healthcare decision makers. ] .
[2018-10-28] MEDS: ATORVASTATIN CALCIUM 40 MG TABLET PO SCH (21:22)
[2018-10-29] MEDS: LEVOTHYROXINE SODIUM 0.088 MG TABLET PO SCH (05:36)
[2018-10-29] MEDS: ISOSORBIDE MONONITRATE 30 MG TAB.ER.24H PO SCH (09:09)
[2018-10-29] MEDS: ATENOLOL 50 MG TABLET PO SCH (09:10)
[2018-10-29] MEDS: CLOPIDOGREL BISULFATE 75 MG TABLET PO SCH (09:10)
[2018-10-29] MEDS: LISINOPRIL 10 MG TABLET PO SCH ×2 (09:10→22:04)
[2018-10-29] MEDS: HYDROCHLOROTHIAZIDE 12.5 MG TABLET PO SCH ×2 (09:10→22:04)
[2018-10-29] MEDS: FINASTERIDE 5 MG TABLET PO SCH (09:10)
[2018-10-29] MEDS: PANTOPRAZOLE SODIUM 40 MG TABLET.DR PO SCH (09:10)
[2018-10-29] MEDS: ASPIRIN 81 MG TABLET, ENT COATED PO SCH (09:10)
[2018-10-29] MEDS: TAMSULOSIN HCL 0.4 MG CAP.SR.24H PO SCH (09:10)
--- NOTE | 2018-10-29 13:40 | Progress Note ---
Provider Note Provider Note: CARDIOLOGY PROGRESS NOTE by Dr. Trang Treviño on 10/29/2018. SUBJECTIVE: The patient states that he is walking in the room without any chest pain or discomfort. This is a result of the patient being on Imdur and Ranexa. He also has no heartburn on proton pump inhibitor. He denies any shortness of breath. There is no PND orthopnea. There is no palpitations. There is no dizziness or near syncope or syncope. There is no TIA CVA symptoms. PHYSICAL EXAMINATION: The patient is mildly obese. He is well-groomed in no acute distress. Selected Entries 10/29/18 12:13 Temperature 97.6 F Temperature Oral Source Pulse Rate 72 Respiratory 18 Rate Blood Pressure 121/65 Blood Pressure 83 Mean BP Location Right Arm BP Position Supine O2 Sat by Pulse 97 Oximetry Oxygen Delivery Room Air Method HEAD: Is atraumatic normocephalic. EYES: Pupils are equal round regular react to light accommodation. Extraocular movements are normal. There is no clinical pallor. There is no scleral icterus. EARS: The patient is slightly hard of hearing. Tympanic memories are intact. External auditory canals are clear. NOSE: There is no deviated nasal septum. There is no inflammation nasal mucous membranes. MOUTH: Mucous membranes of mouth are moist tongue is moist. There is no ulcers. There is no bleeding from the gums. THROAT: There is no redness of the oropharynx. There is no exudates. SKIN: There is no petechia or ecchymosis. There is no skin lesions or skin rashes. NECK: Is supple. There is no JVD. Carotids are equal there is no bruits. There is no lymphadenopathy. There is no goiter. There is no accessory muscle respiration use. There is no swelling in the neck. Trachea central. LUNGS: Is clear to auscultation percussion without any rhonchi rales or wheezing. On palpation there is no chest wall tenderness. HEART: S1-S2 is heard S1 is of normal intensity. There is no S3 gallop. There is no S3 gallop. There is systolic murmur left sternal border and the apex there is no rub. ABDOMEN: Is soft. Mildly obese. There is no hepatosplenomegaly. Bowel sounds are well heard. There is no tender areas masses. There is no rebound guarding or rigidity. EXTREMITIES: Femorals are well felt. There is no femoral bruits leg pulses are well felt. There is no pedal edema. There is no DVT or cellulitis. There is no cyanosis or clubbing. Capillary refill is normal. There is no calf tenderness. ACCOUNTANT ASSISTANT: The patient is conscious awake alert oriented x3 with no focal deficits. PSYCHIATRIC: The patient judgment and insight are intact his affect is normal Impression/recommendation: 1. Exertional angina and exertional shortness of breath most likely secondary to angina equivalent. This is well controlled with current dose of Imdur and Ranexa. Continue aspirin and statin. Would recommend patient have a IV Lexiscan Cardiolite stress test in the morning. Also will repeat the patient's echocardiogram, which was suboptimal poor study which was done yesterday on 10/26/2018. 2. Coronary artery disease. History of coronary bypass graft surgery.? Old inferior [place]. Patient now without exertional anginal symptoms, but the patient level of activity in the hospital is not much.. 3. Hypertension: At present blood pressure is well controlled. 4. Chronic kidney disease stage III: Avoid nephrotoxic drugs. 5. Hyperlipidemia: We will change the patient's Zocor to atorvastatin in view of starting the patient on Ranexa. 6. GERD: We will start the patient on a proton pump inhibitor. Note that the patient's echocardiogram is a suboptimal/poor study. We will have it repeated in the morning of Tuesday. But it seems that the patient's LV ejection fraction is normal., And there is no significant pulmonary hypertension. But will repeat echo on Tuesday. Medications reviewed. Medications added. Discussed management plan with attending physician Dr. Vallejo. Note 40 minutes spent on this patient with more than 50% of time spent in direct patient care. Medical decision making is of high complexity. The patient is a full code. His 2 sons are his surrogate healthcare decision makers.
--- NOTE | 2018-10-29 19:39 | PDOC PROGRESS REPORT ---
Subjective Progress Note for:: 10/29/18 Subjective:: Patient is scheduled for stress test in the morning Reason For Visit: ANGINA EQUIVALENT DISEASE, H/O CAD, CABG, AAA, Physical Exam Vital Signs: Temp Pulse Resp BP Pulse Ox 97.3 F 67 18 126/62 H 96 10/29/18 16:55 10/29/18 16:55 10/29/18 16:55 10/29/18 16:55 10/29/18 16:55 Intake & Output 10/28/18 10/29/18 10/30/18 06:59 06:59 06:59 Intake Total 1108 1737 826 Output Total 992 786 0573 Balance 733 787 -299 Weight 102.3 kg 102.1 kg General appearance: PRESENT: no acute distress Eye exam: PRESENT: PERRLA Respiratory exam: PRESENT: clear to auscultation tracee Cardiovascular exam: PRESENT: +S1, +S2 GI/Abdominal exam: PRESENT: soft Neurological exam: PRESENT: alert Results Laboratory Results: 10/27/18 22:00 10/27/18 22:00 10/26/18 10/26/18 10/26/18 15:05 17:42 17:42 Creatine Kinase 361 H CK-MB (CK-2) 0.24 Troponin I 0.033 NT-Pro-B Natriuret Pep 4740 H 10/27/18 10/27/18 10/27/18 02:40 02:40 10:38 Creatine Kinase 377 H 446 H CK-MB (CK-2) 0.24 Troponin I 0.039 NT-Pro-B Natriuret Pep 10/27/18 10:38 Creatine Kinase CK-MB (CK-2) 0.42 Troponin I 0.035 NT-Pro-B Natriuret Pep Impressions: Chest X-Ray 10/26/18 00:00 IMPRESSION: MILD CARDIOMEGALY. MILD CHRONIC INTERSTITIAL CHANGES. NO ACUTE RADIOGRAPHIC FINDING IN THE CHEST. Assessment & Plan - Diagnosis (1) Anginal equivalent Is this a current diagnosis for this admission?: Yes (2) Chronic kidney disease, stage 3 Is this a current diagnosis for this admission?: Yes (3) AAA (abdominal aortic aneurysm) Qualifiers: Presence of rupture: without rupture Qualified Code(s): I71.4 - Abdominal aortic aneurysm, without rupture Is this a current diagnosis for this admission?: Yes (4) CAD (coronary artery disease) Qualifiers: Coronary Disease-Associated Artery/Lesion type: [place] artery [place] vs. transplanted heart: [place] heart Associated angina: without angina Qualified Code(s): I25.10 - Atherosclerotic heart disease of [place] coronary artery without angina pectoris Is this a current diagnosis for this admission?: Yes (5) Acid reflux Qualifiers: Esophagitis presence: esophagitis presence not specified Qualified Code(s): K21.9 - Gastro-esophageal reflux disease without esophagitis Is this a current diagnosis for this admission?: Yes
[2018-10-29] MEDS: ATORVASTATIN CALCIUM 40 MG TABLET PO SCH (22:04)
[2018-10-30] MEDS: LEVOTHYROXINE SODIUM 0.088 MG TABLET PO SCH (05:15)
[2018-10-30] MEDS: CLOPIDOGREL BISULFATE 75 MG TABLET PO SCH (11:12)
[2018-10-30] MEDS: HYDROCHLOROTHIAZIDE 12.5 MG TABLET PO SCH ×2 (11:12→22:16)
[2018-10-30] MEDS: PANTOPRAZOLE SODIUM 40 MG TABLET.DR PO SCH (11:12)
[2018-10-30] MEDS: ISOSORBIDE MONONITRATE 30 MG TAB.ER.24H PO SCH (11:12)
[2018-10-30] MEDS: ASPIRIN 81 MG TABLET, ENT COATED PO SCH (11:12)
[2018-10-30] MEDS: LISINOPRIL 10 MG TABLET PO SCH ×2 (11:13→22:17)
[2018-10-30] MEDS: TAMSULOSIN HCL 0.4 MG CAP.SR.24H PO SCH (11:13)
[2018-10-30] MEDS: FINASTERIDE 5 MG TABLET PO SCH (11:13)
[2018-10-30] MEDS: ATENOLOL 50 MG TABLET PO SCH (11:13)
[2018-10-30] MEDS ORDERED: REGADENOSON INJ 0.4 MG/5 ML DISP.SYRIN IV ONE (15:18)
[2018-10-30] MEDS: ACETAMINOPHEN 325 MG TABLET PO PRN (19:36)
--- NOTE | 2018-10-30 20:39 | XCELERA REPORT ---
[address] [address] Transthoracic Echocardiogram Report Name: FATMATA LOZADA Age: 88 yrs Gender: Male : 1930 Patient Status: Inpatient Patient Location: [address] [place], [place] [address] Study Date: 10/26/2018 06:32 PM Height: 69 in Weight: 222 lb BSA: 2.2 m2 Procedure: A two-dimensional transthoracic echocardiogram with color flow Doppler was performed. Repeat study is fair. Reason For Study: angina History: angina/BROUSSARD. Ordering Physician: AVIVA ELI Performed By: Annabel Ramirez Interpretation Summary Repeat study is fair. The left ventricle is normal in size. There is normal left ventricular wall thickness. LV EF is 60% The left ventricular ejection fraction is within normal limits. Doppler measurements suggest normal left ventricular diastolic function There is inferior wall mild hypokinesis There is no thrombus. Probably no ASD,VSD , or PFO. The right ventricle is normal in size and function. The right atrium is normal. The left atrial size is normal. There is no evidence of mitral valve prolapse. There is no vegetation seen on the mitral valve. There is no mitral valve stenosis. There is a mild to moderate amount of mitral regurgitation There is no aortic valvular vegetation. There is no aortic valve stenosis There is no LVOT obstruction. No aortic regurgitation is present. There is no tricuspid stenosis. There is a trace to mild amount of tricuspid regurgitation There is mild pulmonary hypertension by echo RVSP is 32 t0 37 mm of Hg , with RA mean of 5 to 10. There is no pulmonic valvular stenosis. There is a trace amount of pulmonic regurgitation The aortic root is normal size. The inferior vena cava appeared normal and decreased > 50% with respiration (RAP 5-10 mmHg) There is no pericardial effusion. MMode/2D Measurements & Calculations RVDd: 3.8 cm LVIDd: 4.1 cm FS: 35.1 % Ao root diam: 3.2 cm IVSd: 1.0 cm LVIDs: 2.6 cm EDV(Teich): 72.7 ml Ao root area: 8.1 cm2 LVPWd: 1.0 cm ESV(Teich): 25.5 ml LA dimension: 4.2 cm EF(Teich): 64.9 % Doppler Measurements & Calculations MV E max mira: MV P1/2t max mira: Ao V2 max: LV V1 max P.5 cm/sec 98.7 cm/sec 95.3 cm/sec 1.8 mmHg MV A max mira: MV P1/2t: 80.4 msec Ao max PG: LV V1 max: 88.4 cm/sec MVA(P1/2t): 2.7 cm2 3.6 mmHg 67.5 cm/sec MV E/A: 1.1 MV dec slope: 359.7 cm/sec2 MV dec time: 0.26 sec PA V2 max: PI end-d mira: TR max mira: MV P1/2t-pr_phl: 75.0 cm/sec 86.9 cm/sec 256.5 cm/sec 80.4 msec PA max PG: TR max P.3 mmHg 26.3 mmHg Left Ventricle The left ventricle is normal in size. There is normal left ventricular wall thickness. LV EF is 60%. The left ventricular ejection fraction is within normal limits. Doppler measurements suggest normal left ventricular diastolic function. There is inferior wall mild hypokinesis. There is no thrombus. Probably no ASD,VSD , or PFO. Right Ventricle The right ventricle is normal in size and function. Atria The right atrium is normal. The left atrial size is normal. Mitral Valve There is no evidence of mitral valve prolapse. There is no vegetation seen on the mitral valve. There is no mitral valve stenosis. There is a mild to moderate amount of mitral regurgitation. Aortic Valve There is no aortic valvular vegetation. There is no aortic valve stenosis. There is no LVOT obstruction. No aortic regurgitation is present. Tricuspid Valve There is no tricuspid stenosis. There is a trace to mild amount of tricuspid regurgitation. There is mild pulmonary hypertension by echo. RVSP is 32 t0 37 mm of Hg , with RA mean of 5 to 10. Pulmonic Valve There is no pulmonic valvular stenosis. There is a trace amount of pulmonic regurgitation. Great Vessels The aortic root is normal size. The inferior vena cava appeared normal and decreased > 50% with respiration (RAP 5-10 mmHg). Effusions There is no pericardial effusion. : AVIVA ELI > Trang Treviño
--- NOTE | 2018-10-30 21:55 | PDOC DISCHARGE SUMMARY ---
General - Admit/Disc Date/PCP Admission Date/Primary Care Provider: 10/26/18 13:15 AVIVA ELI MD Discharge Date: 10/30/18 - Discharge Diagnosis (1) Anginal equivalent Is this a current diagnosis for this admission?: Yes (2) Chronic kidney disease, stage 3 Is this a current diagnosis for this admission?: Yes (3) AAA (abdominal aortic aneurysm) Is this a current diagnosis for this admission?: Yes (4) CAD (coronary artery disease) Is this a current diagnosis for this admission?: Yes (5) Acid reflux Is this a current diagnosis for this admission?: Yes - Additional Information Discharge Diet: As Tolerated Discharge Activity: Activity As Tolerated, Balance Activity w/Rest Prescriptions: Atenolol [Tenormin 100 mg Tablet] 100 mg PO DAILY #90 tablet Finasteride [Proscar 5 mg Tablet] 5 mg PO DAILY #90 tablet Hydrochlorothiazide [Hydrodiuril 12.5 mg Tablet] 12.5 mg PO Q12 #180 tablet Isosorbide Mononitrate [Imdur 30 mg Tablet.er] 60 mg PO DAILY #90 tab.er.24h Pantoprazole Sodium [Protonix [address] Tablet] 40 mg PO DAILY #90 tablet.dr Home Medications: Aspirin [Ecotrin 81 mg EC Tablet] 81 mg PO DAILY 10/26/18 Levothyroxine Sodium [Synthroid 0.088 mg Tablet] 0.088 mg PO Q6AM 10/26/18 Lisinopril [Zestril] 20 mg PO Q12 10/26/18 Simvastatin [Zocor 40 mg Tablet] 40 mg PO QPM 10/26/18 Tamsulosin HCl [Flomax 0.4 mg Cap.sr] 0.4 mg PO DAILY 10/26/18 Acetaminophen [Tylenol 325 mg Tablet] 650 mg PO Q6HP PRN tablet 10/30/18 Atenolol [Tenormin 100 mg Tablet] 100 mg PO DAILY #90 tablet 10/30/18 Finasteride [Proscar 5 mg Tablet] 5 mg PO DAILY #90 tablet 10/30/18 Hydrochlorothiazide [Hydrodiuril 12.5 mg Tablet] 12.5 mg PO Q12 #180 tablet 10/30/18 Isosorbide Mononitrate [Imdur 30 mg Tablet.er] 60 mg PO DAILY #90 tab.er.24h 10/30/18 Pantoprazole Sodium [Protonix [address] Tablet] 40 mg PO DAILY #90 tablet.dr 10/30/18 History of Present Illness History of Present Illness: FATMATA LOZADA is a 88 year old male, She has a history of ischemic heart disease, chronic kidney disease stage III, Abdominal aortic aneurysm, AAA.He came to the office today for evaluation of progressive shortness of breath, he denies any chest pain, in the office a 12-lead EKG was done, it demonstrated Q waves in inferior leads, history of ND status post CABG many years ago. Hospital Course Hospital Course: Patient was admitted for the management of chest pain, suspicious for ischemic chest pain, 3 sets of cardiac enzymes negative for acute ND, he was seen by Dr. Treviño, cardiology, he underwent Cardiolite stress test this was negative For acute reversibility that suggest ongoing ischemia Physical Exam Vital Signs: Temp Pulse Resp BP Pulse Ox 97.3 F 66 28 H 116/58 L 96 10/30/18 19:16 10/30/18 19:16 10/30/18 19:16 10/30/18 19:16 10/30/18 19:16 Intake & Output 10/29/18 10/30/18 10/31/18 06:59 06:59 06:59 Intake Total 1737 826 522 Output Total 950 1315 Balance 787 -489 522 Weight 102.1 kg 99.7 kg General appearance: PRESENT: no acute distress Head exam: PRESENT: atraumatic, normocephalic Eye exam: PRESENT: PERRLA Ear exam: PRESENT: normal external ear exam Mouth exam: PRESENT: moist, tongue midline Neck exam: PRESENT: full ROM Respiratory exam: PRESENT: clear to auscultation tracee Cardiovascular exam: PRESENT: RRR, +S1, +S2 Vascular exam: PRESENT: normal capillary refill GI/Abdominal exam: PRESENT: normal bowel sounds, soft Rectal exam: PRESENT: deferred Neurological exam: PRESENT: alert, CN II-XII grossly intact Psychiatric exam: PRESENT: appropriate affect, normal mood Skin exam: PRESENT: dry, intact, warm Results Laboratory Results: 10/27/18 22:00 10/27/18 22:00 10/26/18 10/26/18 10/26/18 15:05 17:42 17:42 Creatine Kinase 361 H CK-MB (CK-2) 0.24 Troponin I 0.033 NT-Pro-B Natriuret Pep 4740 H 10/27/18 10/27/18 10/27/18 02:40 02:40 10:38 Creatine Kinase 377 H 446 H CK-MB (CK-2) 0.24 Troponin I 0.039 NT-Pro-B Natriuret Pep 10/27/18 10:38 Creatine Kinase CK-MB (CK-2) 0.42 Troponin I 0.035 NT-Pro-B Natriuret Pep Impressions: Chest X-Ray 10/26/18 00:00 IMPRESSION: MILD CARDIOMEGALY. MILD CHRONIC INTERSTITIAL CHANGES. NO ACUTE RADIOGRAPHIC FINDING IN THE CHEST. Qualifiers - * PATIENT BEING DISCHARGED WITH ANY OF THE FOLLOWING DIAGNOSIS: No
--- NOTE | 2018-10-30 22:08 | Progress Note ---
Provider Note Provider Note: Cardiology progress note by Dr. Trang Dixon on 10/30/2018.
[2018-10-30] MEDS: ATORVASTATIN CALCIUM 40 MG TABLET PO SCH (22:16)
--- NOTE | 2018-10-30 22:28 | DRAGON STRESS TEST REPORT ---
Intravenous Lexiscan Cardiolite stress test using single photon emmision computerized tomography. Date of procedure: 10/30/2018. Ordering Provider: Dr. Trang Treviño. Patient's status: In Patient. Indication: Exertional angina and exertional shortness of breath., The patient with a history of coronary artery disease and history of coronary bypass graft surgery.. Coronary risk factors: Age, hypertension, and dyslipidemia. Resting EKG: Sinus Rhythm. Possible old inferior [place]. Stress EKG: No changes of ischemia. The patient has no chest pain or discomfort, and there were no arrhythmias seen. Reason for termination: Protocol. Conclusions: Normal EKG and hemodynamic response to IV Lexiscan. Nuclear data: At rest the patient was given 10.54 millicuries of technetium 99m sestamibi injected intravenously. As per protocol rest non gated SPECT images were obtained. Subsequently the patient was given intravenous Lexiscan at a dose of 0.4 mg in 5 mL intravenously, followed by flush with normal saline. Subsequently the stress dose of millicuries of technetium 99m sestamibi was injected intravenously. As per protocol stress gated images were obtained. Nuclear interpretation: Review of images showed that there is a perfusion defect in both the rest and stress images involving the basal inferior wall and the posterolateral wall. These areas have decreased motion contraction and thickening consistent with prior myocardial infarction. The rest of the segments of the myocardium had normal perfusion at rest, and normal perfusion post stress with IV Lexiscan. The rest of the segments of the myocardium had normal motion, contraction, and thickening by gated study. T. I D. ratio was read as abnormal, by the computer, at 1.26. Visually the TID ratio is normal. There is no transient ischemic dilatation of the left ventricle. Computer read rest, and stress left ventricular ejection fraction were 55 %, and 56 %, respectively. Visually both the stress and rest ejection fractions were normal, and greater than 55%. Conclusion: 1. There is no scintigraphic evidence of Lexiscan induced myocardial ischemia. 2. There is scintigraphic evidence of myocardial infarction/scar involving the basal inferior wall and the posterolateral wall.. Recommendations: 1. Aggressive treatment of coronary artery disease. 2. Aggressive risk factor modification, and treating the underlying co- morbidities. [facility]
[2018-10-31] MEDS: LEVOTHYROXINE SODIUM 0.088 MG TABLET PO SCH (05:39)
[2018-10-31 09:54] VITALS: BP 149/95
== END 2018-10-31 10:14 | disposition home or self-care (01) ==
LOC: 3W 13:15 → OBSVTOIN 13:15 → INTOOBSV 13:15
PROVIDERS: ADMIT Internal Medicine; ATTEND Internal Medicine
DX: I25.118 Atherosclerotic heart disease of native coronary artery with other forms of angina pectoris (principal); I12.9 Hypertensive chronic kidney disease with stage 1 through stage 4 chronic kidney disease, or unspecified chronic kidney disease; N18.3 Chronic kidney disease, stage 3 (moderate); I71.4 Abdominal aortic aneurysm, without rupture; K21.9 Gastro-esophageal reflux disease without esophagitis; E66.9 Obesity, unspecified; E78.5 Hyperlipidemia, unspecified; Z79.899 Other long term (current) drug therapy; Z79.82 Long term (current) use of aspirin; Z95.1 Presence of aortocoronary bypass graft; Z90.49 Acquired absence of other specified parts of digestive tract; Z87.891 Personal history of nicotine dependence
CPT/HCPCS: 36415 ×2; 82553 ×2; 82962; 82550 ×2; 85025 ×2; 80076; 80048; 80053; 81001; 84484 ×2; 85379; 83880; 93306; 93017; 71045; 78452; 93005 ×2; 93010 ×2; G0378 ×6; G0379; A9500; J2785; Q9969; J3490 ×3

== ENCOUNTER → 2018-11-17 | Outpatient (CLI) | payer MEDICARE, OTHER ==
--- NOTE | 2018-11-17 13:11 | XCELERA REPORT ---
[address] [facility] [address] Lower Extremity Venous Evaluation Procedure: Color flow and duplex imaging bilaterally of the veins of the lower extremities as well as the Common Femoral veins. Right Sided Venous Evaluation Normal vessel filling wall to wall, compression and augmentation as well as Colour flow down to the infrageniculate veins. Left Sided Venous Evaluation Normal vessel filling wall to wall, compression and augmentation as well as Colour flow down to the infrageniculate veins. Interpretation Summary No duplex evidence of DVT or obstruction in the bilateral lower extremities. Name: FATMATA LOZADA Age: 88 yrs Gender: Male : 1930 Patient Status: Outpatient Patient Location: Study Date: 11/17/2018 10:03 AM Reason For Study: EDEMA Ordering Physician: AVIVA ELI Performed By: Kole Ledesma : AVIVA ELI > Boby Gonzalez
== END ==
LOC: SP 09:13
PROVIDERS: ATTEND Internal Medicine
DX: R22.43 Localized swelling, mass and lump, lower limb, bilateral (principal)
CPT/HCPCS: 93970

== ENCOUNTER → 2018-12-27 | Outpatient (CLI) | payer MEDICARE, OTHER ==
--- NOTE | 2019-01-01 11:00 | Pulmonary Function Test ---
Pulmonary Function Test Date of Procedure:: 01/01/19 INDICATION:: Dyspnea Referring Provider: Dr. Treviño Fur Blower: Karlee Simpson, LIQUID FLAVOR COMPOUNDER, CRIME SCENE TECHNICIAN - Report Spirometry: Spirometry: pre-FVC: 3.80 L 114% pre-FEV:1[2.78 L 110%] pre-FEV1/FVC %[73] predicted [76] [id number][1.56 L 66%] Lung Volume: Total lung capacity: 4.84 L 81% Vital capacity: 3.60 L 14% Inspiratory capacity: 2.78 L FRC N2: 2.06 L 62% ERV: 0.40 L RV: 1.04 L 37% RV/TLC %: 22 predicted 47 Diffusion Capactity: Diffusion Capacity: DLCO: 8.3 45% DLCO/VA: 2.10 66% Impression: Obstructive ventilatory defect is implied decreased flow at FEF 25-75%. No restrictive ventilatory defect. No hyperinflation or air trapping. Severe decrease in diffusion capacity.
== END ==
LOC: RT 08:34
PROVIDERS: ATTEND Specialist
DX: J44.9 Chronic obstructive pulmonary disease, unspecified (principal); R06.00 Dyspnea, unspecified
CPT/HCPCS: 94010; 94727; 94729; 94760